=== PATIENT | female | born 1945 | race Caucasian/White ===

== ENCOUNTER 2022-12-11 15:18 | Emergency (ER) | payer OTHER ==
[~2022-12-11] VITALS: Ht 152.4 cm; Wt 64.5 kg
[2022-12-11 16:00] VITALS: BP 153/76; PULSE 91; RESP 18
[2022-12-11 16:24] VITALS: O2SAT 98
[2022-12-11] MEDS ORDERED: AMOX500T86 PO (16:45)
== END 2022-12-11 16:50 | disposition home or self-care (01) ==
LOC: ER 15:18
DX: S81.811A Laceration without foreign body, right lower leg, initial encounter (principal); S81.851A Open bite, right lower leg, initial encounter; J44.9 Chronic obstructive pulmonary disease, unspecified; Z79.2 Long term (current) use of antibiotics; Z91.040 Latex allergy status; W54.0XXA Bitten by dog, initial encounter; Y93.89 Activity, other specified; Y92.89 Other specified places as the place of occurrence of the external cause; Y99.8 Other external cause status
CPT/HCPCS: 12002; 99283; J2001

== ENCOUNTER 2022-12-21 15:19 | Emergency (ER) | payer OTHER ==
[~2022-12-21] VITALS: Ht 152.4 cm; Wt 64.5 kg
[~2022-12-21 15:19] MED LIST: AMOX500T86 PO
[2022-12-21 15:33] VITALS: BP 156/67; PULSE 86; RESP 18; O2SAT 95
[2022-12-21] MEDS ORDERED: cefTRIAXone SOD 1,000 MG VL IM ONE (16:00)
== END 2022-12-21 16:26 | disposition home or self-care (01) ==
LOC: ER 15:19
DX: S81.811A Laceration without foreign body, right lower leg, initial encounter (principal); F41.9 Anxiety disorder, unspecified; J44.9 Chronic obstructive pulmonary disease, unspecified; X58.XXXA Exposure to other specified factors, initial encounter; Y93.89 Activity, other specified; Y92.89 Other specified places as the place of occurrence of the external cause; Y99.8 Other external cause status
CPT/HCPCS: 96372; 99283; J0696

== ENCOUNTER 2022-12-28 15:19 | Emergency (ER) | payer OTHER ==
[~2022-12-28] VITALS: Ht 152.4 cm; Wt 64.5 kg
[2022-12-28 16:08] VITALS: BP 149/87; PULSE 87; RESP 18; TEMP 98.2; O2SAT 94
== END 2022-12-28 16:03 | disposition home or self-care (01) ==
LOC: ER 15:19
DX: S81.811D Laceration without foreign body, right lower leg, subsequent encounter (principal); F41.9 Anxiety disorder, unspecified; J44.9 Chronic obstructive pulmonary disease, unspecified; Z48.02 Encounter for removal of sutures; X58.XXXD Exposure to other specified factors, subsequent encounter

== ENCOUNTER 2023-10-30 12:29 | Emergency (ER) | payer OTHER ==
[~2023-10-30] VITALS: Ht 152.4 cm; Wt 61.0 kg
[2023-10-30 13:51] LABS: Basophils # (auto) 0 10 ^3/uL (0-0.2); Basophils % (auto) 0.5 % (0.0-2.0); Eosinophils # (auto) 0.1 10 ^3/uL (0-0.8); Eosinophils % (auto) 1.6 % (0.0-7.0); Hematocrit 35.8 % (36.0-46.0); Hemoglobin 11.7 g/dL (12.2-16.2); Lymphocytes # (auto) 0.8 10 ^3/uL (0.4-5.4); Lymphocytes % (auto) 14.7 % (10.0-50.0); Mean Corpuscular Hgb Conc. 32.6 g/dL (32.0-36.0); Mean Corpuscular Volume 104.2 fL (80.0-100.0); Monocytes # (auto) 0.3 10 ^3/uL (0-1.3); Monocytes % (auto) 5.9 % (0.0-12.0); Neutrophils # (auto) 4.2 10 ^3/uL (1.6-8.6); Neutrophils % (auto) 77.3 % (37.0-80.0); Nucleated Red Blood Cells % 0.1 %; Platelet Count (auto) 176 10^3/uL (140-450); Red Blood Cells 3.43 10^6/uL (4.0-5.20); White Blood Cell 5.4 10^3/uL (4.4-10.8)
[2023-10-30 14:03] LABS: Albumin 4.1 g/dL (3.2-4.8); Alkaline Phosphatase 84 U/L (46-116); Anion Gap 1 (5-15); Aspartate Aminotransferase 19 U/L (13-40); BUN/Creatinine Ratio 17.5 (10.0-20.0); Blood Urea Nitrogen 10 mg/dL (9-23); Calcium 9.1 mg/dL (8.7-10.4); Carbon Dioxide 38 mmol/L (20-30); Chloride 97 mmol/L (98-107); Glucose 128 mg/dL (74-106); Lipase 40 U/L (12-53); Potassium 3.6 mmol/L (3.5-5.1); Sodium 136 mmol/L (136-145)
[2023-10-30 14:04] LABS: Bilirubin, Total 0.7 mg/dL (0.2-1.0); Total Protein 6.5 g/dL (5.7-8.2)
[2023-10-30 14:10] LABS: Alanine Aminotransferase < 9 U/L (7-40)
[2023-10-30 14:45] LABS: Urine Bacteria None Seen /hpf (None Seen)
[2023-10-30 14:55] LABS: Urine Blood Negative /uL (Negative); Urine Clarity Clear (Clear); Urine Color Yellow (Yellow); Urine Protein, UAD Negative (Negative); Urine Specific Gravity 1.017 (1.001-1.035); Urine Urobilinogen Normal (Negative); Urine WBC 10 /hpf (0 - 5); Urine pH 6.5 (5.0-9.0)
[2023-10-30 18:24] VITALS: BP 135/64; PULSE 80; RESP 16; TEMP 98.1; O2SAT 98
== END 2023-10-30 18:26 | disposition home or self-care (01) ==
LOC: ER 12:29
DX: K42.9 Umbilical hernia without obstruction or gangrene (principal); R10.84 Generalized abdominal pain; J44.9 Chronic obstructive pulmonary disease, unspecified; F41.9 Anxiety disorder, unspecified; Z91.040 Latex allergy status; Z88.2 Allergy status to sulfonamides; Z79.899 Other long term (current) drug therapy
CPT/HCPCS: 36415; 74176; 80053; 81001; 83605; 83690; 84484; 85025